=== PATIENT | male | born 1980 | race Caucasian/White ===

== ENCOUNTER → 2022-04-01 16:05 | Outpatient (CLI) | payer OTHER, SELFPAY ==
[2022-04-01 17:36] LABS: Add Manual Diff / Slide Review NO; Basophils Absolute Auto 0 /uL (0-100); Basophils Percent Auto 0.9 % (0-2); Eosinophils Absolute Auto 100 /uL (0-450); Eosinophils Percent Auto 1.6 % (2-4); Hematocrit 44.9 % (41-53); Hemoglobin 15.8 g/dL (13.5-17.5); Lymphocytes Absolute Auto 1900 /uL (1100-4500); Lymphocytes Percent Auto 36.2 % (25-40); Mean Corpuscular HGB Conc 35.2 % (30-36); Mean Corpuscular Hemoglobin 29.8 PG (26-34); Mean Corpuscular Volume 84.6 fL (80-100); Monocytes Absolute Auto 500 /uL (0-900); Neutrophils Absolute Auto 2800 /uL (1500-7000); Neutrophils Percent Auto 52.3 % (50-75); Platelet Count 217 X10^3/uL (150-400); Red Blood Cell Count 5.31 X10^6/uL (4.5-5.9); White Blood Cell Count 5.3 X10^3/uL (4.5-11.0)
[2022-04-01 18:08] LABS: Alanine Aminotransferase 60 IU/L (<50); Albumin 4.5 g/dL (3.5-5.0); Albumin Globulin Ratio 1.3 (1.0-2.8); Alkaline Phosphatase 86 U/L (38-126); Aspartate Aminotransferase 45 IU/L (17-59); Bilirubin Total 0.6 mg/dL (0.2-1.3); Blood Urea Nitrogen 20 mg/dL (9-20); C-Reactive Protein Quant < 0.5 mg/dL (<1.0); Calcium 8.9 mg/dL (8.4-10.2); Carbon Dioxide 27 mmol/L (22-32); Chloride 101 mmol/L (98-107); Estimated Glomerular Filt Rate > 60 mL/min (>60); Globulin 3.4 g/dL (1.7-4.1); Glucose 76 mg/dL (70-100); HEMOLYSIS < 15 (0-50); Potassium 3.9 mmol/L (3.4-5.1); Sodium 138 mmol/L (137-145); Total Protein 7.9 g/dL (6.3-8.2)
[2022-04-01 18:30] LABS: Erythrocyte Sedimentation Rate 3 MM/HR (0-15)
[2022-04-01 18:41] LABS: Rheumatoid Factor < 8.6 IU/mL (<12.0)
== END ==
PROVIDERS: PCP Family Medicine; Referring Provider Family Medicine; Visit Provider Family Medicine
DX: M79.10 Myalgia, unspecified site (principal); R53.83 Other fatigue
CPT/HCPCS: 36415; 80053; 84443; 85025; 85651; 86140; 86430

== ENCOUNTER 2023-10-02 09:51 | Emergency (ER) | payer OTHER, SELFPAY ==
[2023-10-02 09:56] VITALS: BP 129/81; PULSE 65; O2SAT 98
[2023-10-02 09:58] VITALS: BP 129/81; PULSE 57; RESP 16; TEMP 36.5; O2SAT 97; BMI 34.8
--- NOTE | 2023-10-02 10:08 | ED_ITS ---
HPI - Male Genitourinary General Chief complaint: Urogenital-Male Stated complaint: TORRSIONS TESTICLE Time Seen by Provider: 10/02/23 09:52 Source: patient Mode of arrival: Ambulatory History of Present Illness HPI Narrative: 42-year-old male with no significant past medical history presents by private vehicle from home for left testicular pain for the last 2 days. States that yesterday it was much more severe and he states that his testicle was higher than usual. He states that he did not want to miss his daughter's graduation and took pain medications at [facility]. At the graduation he mentioned his symptoms to a friend who is a physician who recommended he come to the ER for evaluation. Patient reports a minimal amount of left testicular pain today, but it was improved compared to yesterday. Denies history of testicular surgeries or STIs. Denies issues urinating. Related Data Previous Rx's Medication Instructions Recorded omeprazole 20 mg capsule,delayed 20 mg PO DAILY #30 caps 04/07/23 release Allergies Allergy/AdvReac Type Severity Reaction Status Date / Time No Known Allergies Allergy Uncoded 07/08/20 09:47 Patient History Social History marital status: Smoking Status: Never smoker alcohol intake: never substance use type: does not use Smoking Status: Never smoker Exam Initial Vital Signs Initial Vital Signs: Vital Signs Pulse Rate 65 10/02/23 09:56 Blood Pressure 129/81 10/02/23 09:56 Pulse Oximetry 98 10/02/23 09:56 Const: Awake, alert, no acute distress, nontoxic appearing GI: Soft, nontender, nondistended, no rebound, no guarding : Teaseler present, external genitalia normal, no discharge, no palpable hernias, generalized left-sided testicular tenderness, particularly posteriorly Skin: Warm, Dry, intact, no rashes Neuro: AO x3, CN II-XII grossly intact, moves all extremities Course Orders Ordered: ED Orders 10/02/23 10:07 US scrotum Stat Vital Signs Vital signs: Vital Signs - 8 hr 10/02/23 09:58 Temperature 97.7 F Pulse Rate 57 L Respiratory Rate 16 Blood Pressure 129/81 Pulse Oximetry 97 Oxygen Delivery Method Room Air MDM - Male Genitourinary Differential Diagnosis Differential diagnosis: Likely urinary tract infection, inguinal hernia and other (torsion) Lab Data Labs: Urine Dip Bedside Urine Glucose Negative Bedside Urine Bilirubin - Negative Bedside Urine Ketone - Negative Urine Specific [place] 1.015 Bedside Urine Occult Blood - Negative Bedside Urine pH 6.0 Bedside Urine Protein - Negative Bedside Urine Urobilinogen - Negative Bedside Urine Nitrite - Negative Bedside Urine Leukocytes - Negative Esterase Imaging Data US - PRINCIPAL STATISTICAL SCIENTIST: Radiologist's Impression: PROCEDURE: US SCROTUM INDICATIONS: L testicle pain x2 days TECHNIQUE: Real-time scanning was performed of the scrotum and testicles, with image documentation. Color and pulse Doppler interrogation was performed of both testicles. COMPARISON: None. FINDINGS: Right: Testicle is normal in size at 4.4 x 2.1 x 3.4 cm, and homogenous in echotexture. Epididymis is normal in overall size and morphology. A small right-sided hydrocele is seen. Overlying scrotal skin is normal in thickness. Left: Testicle is normal in size at 3.1 x 1.9 x 5.1 cm, and homogeneous in echotexture. Epididymis is normal in overall size and morphology. There is a small left- sided hydrocele. Overlying scrotal skin is normal in thickness. Doppler: Color and pulse Doppler demonstrate normal and symmetric arterial flow in both testicles. No varicocele is seen. IMPRESSION: Normal appearing testicles, with normal appearing, symmetric vascularity. No testicular masses are seen. Small bilateral hydroceles can be seen. Dictated by: Henrry Farrell M.D. on 10/02/2023 at 10:01 Approved by: Henrry Farrell M.D. on 10/02/2023 at 10:02 [facility] Narrative Medical decision making narrative: Several days of intermittent testicular pain. On exam cremasteric reflexes intact, testicle is not high-riding, there were no hernias. Ultrasound shows no evidence of torsion, normal testicles and normal vascularity noted. Discussed case with Dr. Edwards of Urology, who states that occasionally intermittent torsion can not be seen, however it was much more frequently seen in adolescents compared to middle-aged man. Patient informed of imaging findings, recommended urology follow up, particularly if he notices continuing pain. Recommended that if patient has an episode of severe pain with high-riding testicle he come back to the emergency department immediately for ultrasound. Discharge Plan Departure Patient Disposition: Home Clinical Impression: Left testicular pain Instructions: DI for Testicular Pain Activity Restrictions/Additional Instructions: Your ultrasound or physical exam today did not show any evidence of testicular torsion. I discussed her case with our on-call urologist, who said that intermittent torsion can happen, although it was much more likely to happen in adolescent males. If you have an acute episode of pain with a high-riding testicle please return to the emergency department to see if an abnormality can be captured on ultrasound. Otherwise follow up with Urology. Take Tylenol and ibuprofen as needed for pain, elevate the testicles with supportive underwear, and apply ice as needed for pain. Prescriptions: No Action omeprazole 20 mg capsule,delayed release(DR/EC) 20 mg PO DAILY Qty: 30 3RF Rx Instructions: 04/07/23 need to see provider prior to more fills, please call for appointment Referrals: Ovidio Resendez MD [Primary Care Provider] - Ivonne Edwards MD [Physician] - Stand Alone Forms: Patient Portal/API
[2023-10-02 11:56] VITALS: O2SAT 98
[2023-10-02 11:57] VITALS: BP 137/84; PULSE 55; O2SAT 97
== END 2023-10-02 12:02 | disposition home or self-care (01) ==
PROVIDERS: Emergency Provider Emergency Medicine; PCP Family Medicine
DX: N50.812 Left testicular pain (principal)
CPT/HCPCS: 76870; 81003; 99282; 99283